=== PATIENT | female | born 1970 | race Caucasian/White ===

== ENCOUNTER 2016-09-09 09:28 | Inpatient (IN) | payer MEDICARE, OTHER ==
--- NOTE | ~2016-09-09 | CT71 ---
[facility] A Service of [facility] RADIOLOGY TEXT RESULTS PATIENT: MEGGAN AYALA LOCATION: C3A 311-01 : 70 UNIT #: [id number] AGE: [address]: Luna Lambert MD SEX: F ORDER DR: [id number] [facility] [address] [place], [place] [address] [id number] E MR#: [id number] Acc #: [id number] NAME: MEGGAN AYALA : 1970 SEX: F STUDY DATE/TIME: 09/09/2016 10:05 UNIT: [facility] ROOM: STUDY DESCRIPTION: CT Head Wo Contrast Attending Physician: Nisha Jurado M.D. Ordering Physician: Nisha Jurado M.D. [facility] REPORT This report is preliminary unless electronic signature is present EXAM CT head without contrast dated 09/09/2016. COMPARISON CT head without contrast dated 08/15/2004. HISTORY Heroin overdose, unresponsive today. Patient was found down. TECHNIQUE CT of the head was obtained without contrast. This CT exam was performed with one or more of the following radiation dose reduction techniques: automatic exposure control, adjustment of mA and/or kV according to patient size, and iterative reconstruction. FINDINGS Significant motion artifact limits evaluation. After giving allowances to motion artifact, no obvious large hemorrhage, hydrocephalus, or midline shift is seen. In the areas without any motion artifact, no demonstrable solid intracranial mass is seen. Paranasal sinuses and mastoid air cells appear to be relatively well aerated. Imaged orbits with the ocular structures do not demonstrate any significant abnormality. IMPRESSION 1. Motion artifact significantly limits evaluation, particularly in the mid to inferior aspect of the brain. 2. After giving allowances to it, no obvious acute abnormality is seen in the visualized portions. Subtle changes cannot be evaluated. Dictated by... [facility] A Service [facility] RADIOLOGY TEXT RESULTS PATIENT: MEGGAN AYALA LOCATION: C3A 311- : 70 UNIT #: [id number] AGE: [address]: Luna Lambert MD SEX: F ORDER DR: Kirsten Coleman M.D. THIS IS AN ELECTRONICALLY VERIFIED REPORT Kirsten Coleman M.D. at 09/10/2016 2:05 PM CPR/tmw TD: 09/09/2016 10:57 JOB #: [id number] MEDICAL IMAGING REPORT Page 1 of 1 COPY
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
--- NOTE | ~2016-09-09 | HP ---
Unit #: [id number] #: [id number] Patient: MEGGAN AYALA [id number] [address] [address] [id number] E MR#: [id number] NAME: MEGGAN AYALA ROOM: Age: 46 Sex: F Admission Date: 09/09/2016 : 1970 Attending Physician: Nisha Jurado M.D. Primary Care Physician: [facility]. HISTORY AND PHYSICAL CHIEF COMPLAINT Heroin overdose. HISTORY OF PRESENT ILLNESS The patient is a 46-year-old female with unknown past medical history, who presented to the emergency department for evaluation of the above. History is obtained from chart review and discussion with the emergency room staff due to the patient's altered mental status. It is unclear when the patient was last seen normal. She was apparently found in a bathroom. She was brought to the emergency department for further evaluation. The patient denies illicit drug use. She was given 4 mg of Narcan in the emergency department with increased level of alertness. She apparently became agitated during the course of her evaluation and was given Geodon. In the emergency department initial temperature was 92.1, pulse 85, respiratory rate 8, oxygen saturation 100% on room air. Urine tox screen was positive for opiates and amphetamines. Alcohol level was 238. She is being admitted to [facility] for evaluation and further treatment. Urinalysis also showed findings concerning for urinary tract infection. She was given 2 g of Rocephin. PAST MEDICAL HISTORY Unknown. PAST SURGICAL HISTORY 1. Cholecystectomy. 2. Tubal ligation. SOCIAL HISTORY Unknown at this time. FAMILY HISTORY Unobtainable. ALLERGIES No known drug allergy information available. HOME MEDICATIONS Unknown. REVIEW OF SYSTEMS A complete review of systems is unobtainable due to altered mental status. Unit #: [id number] #: [id number] Patient: MEGGAN AYALA PHYSICAL EXAMINATION GENERAL: The patient is a female who is sleeping. She just receive Geodon. VITALS: Temperature 92.1, pulse 85, respiratory rate 8, blood pressure 137/90, oxygen saturation 100% on room air. HEENT: The head is atraumatic. Mucous membranes are dry. NECK: In a cervical collar. LUNGS: Clear to auscultation bilaterally with no increased work of breathing. HEART: Regular rate and rhythm. ABDOMEN: Soft and nontender with bowel sounds present in all four quadrants. EXTREMITIES: Nontender with no pedal edema. NEUROLOGIC: The patient is sleeping. She was apparently previously awake and alert. Oriented following Narcan administration. She currently received Geodon and is sleeping. PSYCHIATRIC: The patient demonstrates poor insight and judgment. SKIN: Skin of examined areas is warm and dry. DIAGNOSTIC STUDIES IMAGING: CT of the head showed no acute abnormality. CT of the cervical spine showed severe arthritis changes and MRI was recommended. Chest x-ray showed no acute abnormality. LABORATORY: Arterial blood gas shows pH 7.271, pCO2 60.6, pO2 31.7 on 2 liters. Troponin is less than 0.05. Urinalysis notable for nitrate positive, 2+ protein, 250 glucose, 4+ bacteria, moderate squamous cells. Urine tox screen positive for amphetamines and opiates. CBC notable for MCV 97.5, lactic acid 2.9. CMP notable for potassium 2.8, glucose 171, AST 598, ALT 551, alkaline phosphatase 183, CK 111. Tylenol and salicylate levels are negative. Alcohol level is 238. INR is 1.1. CARDIOVASCULAR: EKG was done, but is not currently on the chart. ASSESSMENT The patient is a 46-year-old female with 1. Altered mental status secondary to number two. 2. Multiple substance overdose, unintentional. 3. Urinary tract infection. The patient received Rocephin in the emergency department. 4. Hypothermia with an initial temperature of 92.1. 5. Hypokalemia. The patient received 40 mEq of potassium IV in the emergency department. 6. Transaminitis. 7. Severe arthritic changes of the cervical spine. PLAN 1. Admit to intermediate level. 2. N.p.o. until awake and passes bedside swallow. 3. Normal saline at 125 mL an hour. 4. TSH, B12 and folate. 5. Neurologic checks. 6. Consult Dr. Babin regarding overdose. 7. Blood cultures times two. 8. Urine culture and sensitivity on urine in the lab. Unit #: [id number] #: [id number] Patient: MEGGAN AYALA 9. Rocephin 1 g IV daily pending results of urine culture. 10. Sepsis protocol with repeat lactic acid. 11. Bear hugger per protocol. 12. Check magnesium level. 13. Potassium/magnesium protocol. 14. Serial cardiac enzymes. 15. Right upper quadrant ultrasound for further evaluation of transaminitis. 16. Check hepatitis panel. 17. MRI of the cervical spine for further evaluation of abnormal CT. 18. Repeat labs in the morning, including CPK. 19. SCDs for DVT prophylaxis. 20. Additional workup and consultants based on the above. Dictated by Brigitte Falk M.D. RUSLAN/derek TD: 09/09/2016 12:33 JOB #: [id number] HISTORY AND PHYSICAL Page 1 of 1 X Brigitte Falk MD X HISTORY AND PHYSICAL
--- NOTE | ~2016-09-09 | DS ---
Unit #: [id number] #: [id number] Patient: MEGGAN AYALA [id number] [address] [address] [id number] I MR#: [id number] NAME: MEGGAN AYALA ROOM: 311 Age: 46 Sex: F Admission Date: 09/09/2016 : 1970 Discharge Date: Attending Physician: Luna Lambert M.D. Primary Care Physician: [facility]. DISCHARGE SUMMARY DISCHARGE DIAGNOSES 1. Toxic metabolic encephalopathy. 2. Change in mental status, most likely secondary to polysubstance abuse. Also she has a history of seizures, could be seizure episode. 3. History of seizures. 4. Escherichia coli urinary tract infection. 5. Multisubstance abuse. 6. Hypothermia, secondary to substance abuse. 7. Sepsis. 8. Transaminitis secondary to alcohol abuse. 9. Abnormal CAT scan of the neck. MRI shows no infection and no diskitis. 10. Hypokalemia. 11. Hypermagnesemia. 12. Acute hypercapnic/hypoxic respiratory failure secondary to drug abuse. CONSULTANTS Dr. Contreras and Dr. Babin. PROCEDURES None. DIAGNOSTIC STUDIES MRI of the cervical spine with IV contrast and shows no infection or abscess. That is done on 09/11/2016. MRI on 09/11/2016 shows motion degraded C4 and C5 facet joint, shows marrow edema. Could indicate active inflammation or degeneration. LABORATORY STUDIES: Urine culture is growing E. coli. Blood cultures negative, creatinine 0.5, AST 414, ALT 443, alk phos 174, total bilirubin 0.9. Troponin is 0.3, lactic acid 1.1. Urine drug screen positive for amphetamines and opiates. ABG - pH 7.27, carbon dioxide 60, oxygen 31. IMAGING STUDIES: CT of the cervical spine shows C4 and C5 facet changes. CAT scan of the head - no acute abnormalities. ALLERGIES None. DISCHARGE MEDICATIONS 1. Gabapentin 300 q.8. Unit #: [id number] #: [id number] Patient: MEGGAN AYALA 2. Prozac 20 daily. 3. Seroquel 250 at bedtime. 4. Nitrofurantoin 100 p.o. b.i.d. HOSPITAL COURSE 46-year-old admitted with a change in mental status. Change in mental status secondary to metabolic encephalopathy from drug overdose versus seizures. Gabapentin has been continued for her seizures. No other seizure medication given and she does not take anything else for her seizures. Most likely her seizures are from alcohol abuse in the past. CT of the head negative. E. coli urinary tract infection started on Rocephin, currently afebrile, (1) stable. Patient will be discharged on nitrofurantoin. Abnormal CAT scan of the neck. Patient is seen by Dr. Contreras. He repeated MRI of the spine with contrast. Repeat MRI did not show any acute infection or abscess. I am going to discharge her after seen by Dr. Contreras. Patient has underweight and calorie malnutrition. Continue with a high calorie diet. Transaminitis secondary to alcohol abuse, advised to quit. Hyperkalemia and hypomagnesemia. Replace with p.o. and IV magnesium currently stable. Acute hypercapnic/hypoxic respiratory failure on admission secondary to drug overdose resolved. DISCHARGE DISPOSITION Home. FOLLOWUP Follow with family physician in one week time. Patient will be seen by Dr. Contreras before discharge. Dictated by... Liliana Cedeno TD: 09/12/2016 11:38 JOB #: [id number] DISCHARGE SUMMARY Page 1 of 1 X Luna Lambert MD X DISCHARGE SUMMARY
--- NOTE | ~2016-09-09 | CO ---
Unit #: [id number] #: [id number] Patient: MEGGAN AYALA [id number] [address] [address] [id number] I MR#: [id number] NAME: MEGGAN AYALA ROOM: [facility] Age: 46 Sex: F Admission Date: 09/09/2016 : 1970 Attending Physician: Lnua Lambert M.D. Primary Care Physician: [facility]. Consultation Date: 09/11/2016 CONSULTATION REPORT HISTORY OF PRESENT ILLNESS The patient is a 46-year-old female. She supposedly at a seizure at home as she describes it and was thought to be having an overdose and was brought to the hospital for further evaluation. She does have a past history of drug abuse but denies any current drug abuse. PAST MEDICAL HISTORY Otherwise reviewed per chart. MEDICATIONS Per chart. REVIEW OF SYSTEMS A 14-point review of systems is negative except for some mild neck pain. PHYSICAL EXAMINATION Neck is nontender to palpation. She is thin. She has no motor or sensory deficits in her upper or lower extremities. No long tract signs are present. DIAGNOSTIC STUDIES IMAGING: MRI of the cervical spine without contrast is severely motion degraded. There is some edema in the posterior facet at C4-5, unknown etiology. Radiologist recommends repeat MRI with sedation and IV contrast. CLINICAL IMPRESSION Cervical pain, unknown etiology, possible infectious. RECOMMENDATIONS Repeat MRI. I have taken the liberty of setting this up with contrast and Ativan. We will follow the patient during the admission. I do not see anything warranting any surgical intervention on the current study. Dictated by... Liliana Pierson/christa TD: 09/11/2016 13:59 JOB #: [id number] Unit #: [id number] #: [id number] Patient: MEGGAN AYALA CONSULTATION REPORT Page 1 of 1 X Josias Contreras MD X CONSULTATION REPORT
--- NOTE | ~2016-09-09 | CR72 ---
[facility] A Service of [facility] & [facility] RADIOLOGY TEXT RESULTS PATIENT: MEGGAN AYALA LOCATION: [facility] 311-01 : 70 UNIT #: [id number] AGE: [address]: Luna Lambert MD SEX: F ORDER DR: [id number] [facility] [address] [place], [place] [address] [id number] E MR#: [id number] Acc #: [id number] NAME: MEGGAN AYALA : 1970 SEX: F STUDY DATE/TIME: 09/09/2016 9:41 UNIT: [facility] ROOM: STUDY DESCRIPTION: CR Chest Single View Portable Attending Physician: Nisha Jurado M.D. Ordering Physician: Nisha Jurado M.D. [facility] REPORT This report is preliminary unless electronic signature is present EXAM Single view of the chest dated 09/09/2016 at 0941 hours. COMPARISON Chest 2 views dated 08/14/2004. HISTORY Patient was found by family today. Shortness of air and altered mental status. FINDINGS Single view of the chest was obtained. Lungs are slightly hyperinflated which could be due to deep inspiration. Underlying minimal emphysematous changes cannot be excluded in the appropriate clinical setting. Nonspecific. No superimposed acute cardiopulmonary disease. Lungs are well aerated. Heart, mediastinum, and bones are within normal limits. Dictated by... Kirsten Coleman M.D. THIS IS AN ELECTRONICALLY VERIFIED REPORT Kirsten Coleman M.D. at 09/10/2016 2:05 PM CPR/tmw TD: 09/09/2016 10:08 JOB #: [id number] MEDICAL IMAGING REPORT Page 1 of 1 COPY
--- NOTE | ~2016-09-09 | MR32 ---
[facility] A Service of [facility] & [facility] RADIOLOGY TEXT RESULTS PATIENT: MEGGAN AYALA LOCATION: A 311-01 : [birth year] UNIT #: [id number] AGE: [address]: Luna Lambert MD SEX: F ORDER DR: [id number] [facility] [address] [place], [place] [address] [id number] I MR#: [id number] Acc #: [id number] NAME: MEGGAN AYALA : 1970 SEX: F STUDY DATE/TIME: 09/10/2016 18:02 UNIT: [address] ROOM: [facility] STUDY DESCRIPTION: MR Cervical Wo Contrast Attending Physician: Luna Lambert M.D. Ordering Physician: Brigitte Falk M.D. [facility] REPORT This report is preliminary unless electronic signature is present. EXAM MRI of the cervical spine without contrast HISTORY 46-year-old female found down from apparent heroin overdose. Abnormal CT cervical spine. COMPARISON CT cervical spine 09/09/2016 FINDINGS Multiplanar, multiecho imaging was performed of the cervical spine utilizing a high-field magnet and dedicated protocol. Study is severely degraded due to motion artifact. Examination demonstrates normal spinal alignment. There is marrow edema within the C4 and C5 vertebral bodies but no definite fluid across the disc space to suggest discitis. There is also marrow edema within the right C4-5 lamina bordering the C4-5 facet joint. Again, this could be degenerative in nature though underlying infectious arthropathy not excluded. Clearly, no drainable fluid collection or abscess. There is multilevel degenerative disc disease with mild posterior disc bulging C3-4, C4-5, C5-6. No Chiari malformation. Cervical cord signal appears normal without mass, syrinx or contusion. Prevertebral soft tissues appear normal. IMPRESSION Technically limited examination due to motion artifact. Study does confirm facet arthropathy involving the right C4-5 facet joints with surrounding marrow edema, which could indicate an active inflammatory process. This may be degenerative in nature though an infectious facet arthropathy not entirely excluded. Clearly, no evidence to suggest discitis though there is some nonspecific marrow edema within the C4 and C5 vertebral bodies. Recommend the patient undergo clinical followup and if clinical symptoms persist, repeat c-spine imaging, possibly with STS. [facility] A Service of [facility] & [facility] RADIOLOGY TEXT RESULTS PATIENT: MEGGAN AYALA LOCATION: C3A 311-01 : [birth year] UNIT #: [id number] AGE: [address]: Luna Lambert MD SEX: F ORDER DR: sedation, and IV contrast may be warranted. Again, the current study is severely degraded due to motion artifact. Dictated by... Mateo Dumont M.D. THIS IS AN ELECTRONICALLY VERIFIED REPORT Mateo Dumont M.D. at 09/11/2016 10:59 PM MIRTA/shirley TD: 09/10/2016 23:30 JOB #: [id number] MRI CENTER REPORT Page 1 of 1 COPY
--- NOTE | ~2016-09-09 | CO ---
Unit #: [id number] #: [id number] Patient: NORMA AYALA [id number] [address] [address] [id number] I MR#: [id number] NAME: NORMA AYALA ROOM: 311 Age: 46 Sex: F Admission Date: 09/09/2016 : 1970 Attending Physician: Luna Lambert M.D. Primary Care Physician: [facility]. Consultation Date: 09/12/2016 CONSULTATION REPORT REASON FOR CONSULTATION Followup. DISCUSSION Norma is a 46-year-old female seen in room 311 bed-1 on 09/12/16 at [facility]. The patient was compliant and cooperative. Reported feeling better, decrease in anxiety/agitation. Patient reports making progress, sleeping good. Denied any suicidal or homicidal ideation. REVIEW OF SYSTEMS Complete review of systems is remarkable. MENTAL STATUS EXAMINATION GENERAL APPEARANCE: The patient in thin built, casually dressed. Attention span and concentration fair. Speech - regular rate, coherent. Oriented in time, place and person. Mood and affect were labile. Thought process - goal directed. Thought content - patient denied any thoughts of harming self or others or any psychotic symptoms. Recent and remote memory fair. Language - able to name object, repeat phrases. Fund of knowledge fair. Insight and judgment fair to slightly impaired. DIAGNOSIS PSYCHIATRIC: Opiate use disorder, severe - F11.20. ASSESSMENT/PLAN 1. Supportive psychotherapy and psychoeducation provided to patient. 2. Advised patient to follow up at (1) program at [facility]. Patient was also given Crisis Line number [phone]. Please feel free to call if any questions. Telephone number [phone]. Dictated by... Jimy Babin M.D. Nereida TD: 09/13/2016 11:59 JOB #: [id number] Unit #: [id number] #: [id number] Patient: NORMA AYALA CONSULTATION REPORT Page 1 of 1 X Jimy Babin MD CONSULTATION REPORT
--- NOTE | ~2016-09-09 | EKG ---
PATIENT: MEGGAN AYALA UNIT #: [id number] Ventricular Rate: 68 BPM Atrial Rate: 68 BPM P-R Interval: 158 ms QRS Duration: 80 ms Q-T Interval: 460 ms QTC Calculation(Bezet): 489 ms P Ashton: 55 degrees Calculated R Ashton: 53 degrees Calculated T Ashton: 113 degrees Diagnosis Line: Normal sinus rhythm Diagnosis Line: Nonspecific ST and T wave abnormality Diagnosis Line: Prolonged QT Diagnosis Line: Abnormal ECG Diagnosis Line: No previous ECGs available Diagnosis Line: Confirmed by PAUL PERSAUD MD ([id number]) on 09/09/2016 Diagnosis Line: 4:46:35 PM INTERPRETING MD: HUNG FOFANA
--- NOTE | ~2016-09-09 | CT52 ---
[facility] A Service of [facility] RADIOLOGY TEXT RESULTS PATIENT: MEGGAN AYALA LOCATION: C3A 311-01 : [birth year] UNIT #: [id number] AGE: [address]: Luna Lambert MD SEX: F ORDER DR: [id number] [facility] [address] [place], [place] [address] [id number] MR#: [id number] Acc #: [id number] NAME: MEGGAN AYALA : 1970 SEX: F STUDY DATE/TIME: 09/09/2016 10:11 UNIT: LEANDRO ROOM: STUDY DESCRIPTION: CT Cervical Spine Wo Cont Attending Physician: Nisha Jurado M.D. Ordering Physician: Nisha Jurado M.D. [facility] REPORT This report is preliminary unless electronic signature is present EXAM CT of the C-spine without contrast dated 09/09/2016. COMPARISON None HISTORY Heroin overdose, unresponsive today. Patient was found down. TECHNIQUE CT of the C-spine was obtained without contrast in the axial plane followed by sagittal and coronal reformats. This CT exam was performed with one or more of the following radiation dose reduction techniques: automatic exposure control, adjustment of mA and/or kV according to patient size, and iterative reconstruction. FINDINGS Vertebral body heights and alignment are preserved. Intervertebral disc heights are intact. Prominent anterior and posterior endplate osteophytes are noted. There is a hypodense lesion noted within the right C5 pedicle which is associated with right C4-5 facet joint irregularity. Bony changes are also noted in the right C4 pedicle and right C4 lamina. There is some hypodensity noted adjacent to these lesions in the nearby paraspinal soft tissue and there is probably involvement of the right C4-5 joint predominantly with bony changes. There are no old studies for comparison. There appears to be a hypodense 4.5 x 7 mm component of it in the right pedicle of C5. No acute fracture or subluxation is seen. Pre and paravertebral soft tissues do not demonstrate any significant abnormality. Emphysematous blebs are noted in the lung apices, particularly in the right lung. C2-3: Mild disc bulge without canal stenosis or neural foraminal STS. [facility] A Service of [facility] RADIOLOGY TEXT RESULTS PATIENT: MEGGAN AYALA LOCATION: C3A 311-01 : [birth year] UNIT #: [id number] AGE: [address]: Luna Lambert MD SEX: F ORDER DR: narrowing. C3-4: Disc osteophyte complex with kucmxust-eh-echeem bilateral facet hypertrophic changes. Bilateral uncinate spurs are noted with mild left and moderate right neural foraminal narrowing. There is a central protrusion. Borderline size to mild canal stenosis is seen. C4-5: Disc osteophyte complex with bilateral uncinate spurs, severe bilateral neural foraminal narrowing. Significant changes are noted in the right facet joint as described above. There are also some changes to a lesser degree noted in the left facet joint. Borderline size canal. C5-6: Disc osteophyte complex with bilateral uncinate spurs, mild right and nawqjojw-yg-bricqw left facet hypertrophic facet changes. Severe left and mild right neural foraminal narrowing are noted with mild canal stenosis. C6-7, C7-T1: Mild disc bulge without significant canal stenosis or neural foraminal narrowing. IMPRESSION 1. No acute fracture or subluxation. 2. There are facet changes at multiple levels, most prominent in the right C4-5 facet joint extending to the articulating surfaces and laminae of right C4 and right C5 with bony irregularity and adjacent paraspinal hypodense component. These are suspicious for severe arthritic changes with synovial inflammatory tissue and synovial cyst formation. No drainable significant acute infectious fluid collection like abscess relating to a septic arthritis is seen. Given the lack of prior studies, acuity of the lesion cannot be determined. Clinical correlation and depending on the need, MRI can be considered for further evaluation. 3. Varying degrees of neural foraminal narrowing are noted at multiple levels, worst in bilateral C4-5 and C5-6. Correlate with appropriate radiculopathy. Dictated by... Kirsten Coleman M.D. THIS IS AN ELECTRONICALLY VERIFIED REPORT Kirsten Coleman M.D. at 09/10/2016 2:08 PM CPR/tmw TD: 09/09/2016 12:08 JOB #: [id number] MEDICAL IMAGING REPORT [facility]. [facility] A Service of [facility] RADIOLOGY TEXT RESULTS PATIENT: MEGGAN AYALA LOCATION: [facility] 311-01 : [birth year] UNIT #: [id number] AGE: [address]: Lnua Lambert MD SEX: F ORDER DR: Page 1 of 1 COPY
--- NOTE | ~2016-09-09 | US6 ---
[facility] A Service of [facility] RADIOLOGY TEXT RESULTS PATIENT: MEGGAN AYALA LOCATION: [facility] 311-01 : 70 UNIT #: [id number] AGE: [address]: Luna Lambert MD SEX: F ORDER DR: [id number] [facility] [address]. [place], [place] [address] [id number] I MR#: [id number] Acc #: [id number] NAME: MEGGAN AYALA : 1970 SEX: F STUDY DATE/TIME: 09/10/2016 9:30 UNIT: [address] ROOM: [facility] STUDY DESCRIPTION: US Abdominal Limited Attending Physician: Luna Lambert M.D. Ordering Physician: Brigitte Falk M.D. Primary [facility] Phys[facility] REPORT This report is preliminary unless electronic signature is present EXAM Gallbladder ultrasound, 09/10/2016. HISTORY Abnormally elevated liver enzymes. Cholecystectomy 20 years ago. FINDINGS The liver is homogeneous in echotexture demonstrates no cystic or solid mass lesions. The intra and extrahepatic bile ducts are not dilated. The gallbladder is surgically absent as per patient history. The common duct measures 6 mm. The pancreas and right kidney are normal. IMPRESSION Surgical absence of the gallbladder. Otherwise, negative right upper quadrant ultrasound. Dictated by... Christopher Rodas M.D. THIS IS AN ELECTRONICALLY VERIFIED REPORT Christopher Rodas M.D. at 09/12/2016 8:16 AM LINDSAY/liz TD: 09/10/2016 15:09 JOB #: [id number] MEDICAL IMAGING REPORT Page 1 of 1 COPY
--- NOTE | ~2016-09-09 | CO ---
Unit #: [id number] #: [id number] Patient: MEGGAN AYALA [id number] [address] [address] [id number] I MR#: [id number] NAME: MEGGAN AYALA ROOM: 311 Age: 46 Sex: F Admission Date: 09/09/2016 : 1970 Attending Physician: Luna Lambert M.D. Primary Care Physician: [facility]. Consultation Date: 09/11/2016 CONSULTATION REPORT DISCUSSION Ms. Green is a 46-year-old female seen in room 311 3A at [facility] on 09/11/16 as a followup. The patient reported feeling better, decrease in anxiety/depression. Patient was using opiates. Patient denied any withdrawal symptom. Mood sad, dysphoric. Patient was cooperative. REVIEW OF SYSTEMS Complete review of systems unremarkable. MENTAL STATUS EXAMINATION GENERAL APPEARANCE: The patient was casually dressed. Attention span and concentration fair. Oriented in place and person. Mood and affect was (1) . Speech was regular rate. Thought process - goal directed. Patient denied any thoughts of harming self or others or any psychotic symptoms. Recent and remote memory fair. Language intact. Fund of knowledge fair. Insight and judgment fair to slightly impaired. DIAGNOSIS Opiate use disorder, severe - F11.20. ASSESSMENT/PLAN 1. Supportive psychotherapy and psychoeducation provided to patient. 2. Educated about benefits and side effects of medication and course and prognosis of illness. 3. Please feel free to call if any questions. Telephone number [phone]. Dictated by... Liliana Luong/nataly TD: 09/18/2016 10:50 JOB #: [id number] Unit #: [id number] #: [id number] Patient: MEGGAN AYALA CONSULTATION REPORT Page 1 of 1 X Jimy Babin MD CONSULTATION REPORT
--- NOTE | ~2016-09-09 | CO ---
Unit #: [id number] #: [id number] Patient: MEGGAN AYALA [id number] [facility] [address] [facility] [address]. [place], [place] [address] [id number] I MR#: [id number] NAME: MEGGAN AYALA ROOM: 311 Age: 46 Sex: F Admission Date: 09/09/2016 : 1970 Attending Physician: Luna Lambert M.D. Primary Care Physician: [facility] Consultation Date: 09/10/2016 CONSULTATION REPORT REASON FOR CONSULTATION Confusion, opioid abuse. HISTORY OF PRESENT ILLNESS Ms. Green is a 46-year-old female, seen on 09/10/2016 in room 311, bed 1 at [facility]. The patient was pleasant and cooperative during interview, able to answer questions appropriately, sitting in a propped up position. The patient denied any current suicidal or homicidal ideation. Denied any psychotic symptom. The patient admitted using drugs and does not remember much. The patient's urine drug screen was positive for amphetamine and opioids. The patient was admitted with heroin overdose. The patient reported using these drugs and accidental overdose. Denied any suicide attempt or any psychotic symptom or any suicidal ideation at this time. The patient was given 4 mg of Narcan in the emergency room, which was helpful. The patient able to contract for safety at this time. Denied any psychotic symptom. PAST PSYCHIATRIC HISTORY Remarkable for history of depression and substance abuse, as mentioned above. No history of any suicide attempt or any inpatient psychiatric treatment. MEDICAL HISTORY History of cholecystectomy, tubal ligation. No chronic medical condition. MEDICATION HISTORY None. Please refer to MAR for detail. FAMILY HISTORY AND SOCIAL HISTORY The patient reports that she has a good support system. No history of any abuse. History of substance abuse as mentioned above. REVIEW OF SYSTEMS Complete review of systems is unremarkable. The patient denied any complaints at this time. MENTAL STATUS EXAMINATION General appearance; the patient dressed casually in hospital attire, sitting comfortably in a propped up position. Attention span and concentration, fair. Speech, regular rate and coherent. Oriented in time, place, and person. Mood and affect were labile. Thought process, coherent and goal directed. Thought content, the patient denied any thoughts of harming self or others or any psychotic symptom. Recent and remote memory, fair. Language, able to name object and repeat phrases. Unit #: [id number] #: [id number] Patient: MEGGAN AAYLA Fund of knowledge, fair. Insight and judgment, fair to slightly impaired. DIAGNOSES Psychiatric: Opioid use disorder, severe, F11.20. Secondary diagnosis: Deferred. Medical diagnosis: Please refer to H and P. Stressors: Psychosocial stressor. ASSESSMENT/PLAN 1. Supportive psychotherapy and psychoeducation provided to the patient. 2. Educated about benefits and side effects of medication and course and prognosis of illness. The patient at this time denied any suicidal or homicidal ideation, denied any psychotic symptom. The patient is to continue with Prozac as advised and follow up in IOP level of care at [facility]. The patient was given crisis line #[phone]. Please feel free to call if any questions, telephone #[phone]. Dictated by... Liliana Luong/felipe TD: 09/11/2016 03:41 JOB #: [id number] CONSULTATION REPORT Page 1 of 1 X Jimy Babin MD X CONSULTATION REPORT
[2016-09-09 09:20] LABS: URINE SOURCE CATH
[2016-09-09 09:26] LABS: ARTERIAL BLOOD GAS HCO3 27.9 mmol/L; ARTERIAL BLOOD GAS MET HB 0.7 %sat (0.0-2.0); ARTERIAL BLOOD GAS pH 7.271 (7.350-7.450)
[2016-09-09 09:28] LABS: ARTERIAL BLOOD GAS PCO2 60.6 mmHg (35.0-45.0); ARTERIAL BLOOD GAS PO2 31.7 mmHg (80.0-100)
[2016-09-09 09:29] LABS: ARTERIAL DRAW? NO
[2016-09-09 09:30] LABS: ARTERIAL BLOOD GAS DELIVERY NASAL CANNULA
[2016-09-09 09:36] LABS: URINE APPEARANCE CLEAR; URINE BILIRUBIN NEG (NEG); URINE BLOOD NEG (NEG); URINE COLOR YELLOW; URINE GLUCOSE 250 MG/DL (NEG); URINE KETONE NEG (NEG); URINE LEUKOCYTE ESTERASE NEG (NEG); URINE NITRATE POS (NEG); URINE PROTEIN 2+ (NEG); URINE SPECIFIC GRAVITY 1.015 (1.003-1.035)
[2016-09-09 09:39] LABS: CULTURE INDICATED? YES; URBCS1 AUWI 0-2 /[HPF] (0-2); URINE BACTERIA AUWI 4+ (NEGATIVE); URINE SQUAMOUS EPITHELIAL CELL MOD /[HPF]
[2016-09-09 09:46] LABS: POC - CKMB 2.8 ng/mL (0.0-7.9); POC - TROPONIN <0.05 ng/mL (<=0.05)
[2016-09-09 09:47] LABS: AMPHETAMINE POS (NEG); BARBITURATES NEG (NEG); BENZODIAZEPINES NEG (NEG); COCAINE NEG (NEG); MARIJUANA NEG (NEG); OPIATES POS (NEG); TRICYCLIC ANTIDEPRESSANTS NEG (NEG); U METHADONE NEG (NEG)
[2016-09-09 09:50] LABS: U HYALINE CASTS AUWI 0-2 /[LPF]
[2016-09-09 10:00] LABS: BASOPHIL# 0.1 X10e3 (0-0.3); BASOPHIL% 1.3 % (0-2.5); DIFF IND NO; EOSINOPHIL# 0.2 X10e3 (0-0.7); EOSINOPHIL% 4.1 % (0.0-7.0); HEMATOCRIT 37.6 % (35.0-45.0); HEMOGLOBIN 12.3 gm/dL (12.0-16.0); LYMPHOCYTE# 2.1 X10e3 (1.0-3.5); LYMPHOCYTE% 51.5 % (17.0-45.0); MEAN CELL VOLUME 97.5 FL (83-96); MEAN CORPUSCULAR HEMOGLOBIN 31.9 PG (28-34); MEAN CORPUSCULAR HGB CONC 32.7 g/dL (30-36); MEAN PLATELET VOLUME 7.9 FL (6.5-11.5); MONOCYTE# 0.4 X10e3 (0-1.0); MONOCYTE% 9.9 % (3.0-12.0); NEUTROPHIL# 1.4 X10e3 (1.5-7.1); NEUTROPHIL% 33.2 % (40-75); PLATELET COUNT 192 X10e3 (140-420); RED BLOOD COUNT 3.86 X10e (3.90-5.30); RED CELL DISTRIBUTION WIDTH 13.7 % (11.0-15.5); WHITE BLOOD COUNT 4.1 X10e3 (4.0-10.5)
[2016-09-09 10:07] LABS: INR 1.1; PARTIAL THROMBOPLASTIN TIME 26.6 SECONDS (23.5-31.3); PROTHROMBIN TIME (PATIENT) 11.9 SECONDS (9.6-11.5)
[2016-09-09 10:09] LABS: ALBUMIN SERUM 4.3 g/dL (3.5-5.0); ALKALINE PHOSPHATASE 183 U/L (32-92); ALT (SGPT) 551 U/L (10-40); AST (SGOT) 598 U/L (10-42); BILIRUBIN, DIRECT 0.1 mg/dL (0.0-0.2); BILIRUBIN,INDIRECT 0.6 mg/dL (0.0-0.9); BILIRUBIN,TOTAL 0.7 mg/dL (0.2-2.0); BLOOD UREA NITROGEN 10 mg/dL (9-23); CALCIUM SERUM 8.4 mg/dL (8.4-10.2); CARBON DIOXIDE 24 mmol/L (22-31); CHLORIDE 103 mmol/L (100-111); CPK (CREATINE PHOSPHOKINASE) 111 IU/L (26-140); CREATININE SERUM 0.4 mg/dL (0.6-1.4); GLOM FILT RATE Estimated 124.9 mL/min (>60); GLUCOSE FASTING 171 mg/dL (70-110); SALICYLATE <4.0 mg/dL; SODIUM 139 mmol/L (135-145)
[2016-09-09 10:12] LABS: ACETAMINOPHEN <10 ug/mL
[2016-09-09 10:13] LABS: ALCOHOL BLOOD 238 mg/dL (0)
[2016-09-09 10:14] LABS: POTASSIUM 2.8 mmol/L (3.5-5.1)
[2016-09-09 12:31] LABS: POC - CKMB 2.7 ng/mL (0.0-7.9); POC - TROPONIN <0.05 ng/mL (<=0.05)
[2016-09-09 14:29] LABS: FOLATE (FOLIC ACID) 10.9 ng/mL (>5.8)
[2016-09-09] MEDS ORDERED: GABAPENTIN300 MG PO (19:36)
[2016-09-09 19:37] LABS: MB 3.5 ng/ml
[2016-09-09] MEDS ORDERED: SEROQUEL PO (19:37)
[2016-09-09] MEDS ORDERED: PROZAC PO (19:37)
[2016-09-09] MEDS ORDERED: IMITREX PO (19:38)
[2016-09-10 00:05] LABS: MAGNESIUM 1.4 mg/dL (1.6-3.0); POTASSIUM 4.2 mmol/L (3.5-5.1)
[2016-09-10 01:04] LABS: %MB 3.7 % (0.0-4.0); MB 3.2 ng/ml
[2016-09-10 07:47] LABS: HEMATOCRIT 39.5 % (35.0-45.0); HEMOGLOBIN 12.9 gm/dL (12.0-16.0); MEAN CORPUSCULAR HEMOGLOBIN 31.9 PG (28-34); MEAN CORPUSCULAR HGB CONC 32.5 g/dL (30-36); RED BLOOD COUNT 4.03 X10e (3.90-5.30); RED CELL DISTRIBUTION WIDTH 13.5 % (11.0-15.5)
[2016-09-10 07:50] LABS: WHITE BLOOD COUNT 6.6 X10e3 (4.0-10.5)
[2016-09-10 08:31] LABS: ALBUMIN SERUM 3.6 g/dL (3.5-5.0); BILIRUBIN,TOTAL 0.9 mg/dL (0.2-2.0); CALCIUM SERUM 8.6 mg/dL (8.4-10.2); CREATININE SERUM 0.5 mg/dL (0.6-1.4); GLOM FILT RATE Estimated 116.1 mL/min (>60); POTASSIUM 3.9 mmol/L (3.5-5.1); PROTEIN TOTAL SERUM 7.1 g/dL (6.0-8.3)
[2016-09-12 09:23] LABS: HEMATOCRIT 43.4 % (35.0-45.0); HEMOGLOBIN 14.4 gm/dL (12.0-16.0); MEAN CELL VOLUME 97.5 FL (83-96); MEAN CORPUSCULAR HEMOGLOBIN 32.4 PG (28-34); MEAN CORPUSCULAR HGB CONC 33.2 g/dL (30-36); MEAN PLATELET VOLUME 8.1 FL (6.5-11.5); RED BLOOD COUNT 4.46 X10e (3.90-5.30); RED CELL DISTRIBUTION WIDTH 13.3 % (11.0-15.5)
[2016-09-12 10:22] LABS: BUN/CREATININE RATIO 23.33; CALCIUM SERUM 9.8 mg/dL (8.4-10.2); CREATININE SERUM 0.6 mg/dL (0.6-1.4); GLOM FILT RATE Estimated 109.3 mL/min (>60); POTASSIUM 4.1 mmol/L (3.5-5.1)
[2016-09-12] MEDS ORDERED: NITROFURANTOIN100 M3 PO (10:32)
[2016-09-12 13:15] LABS: HA AB IGM (HEPPAN) Nonreactive (()); HB CORE AB IGM (HEPPAN) Nonreactive (Nonreactive); HB S AG (HEPPAN) Nonreactive (Nonreactive); HEP C AB (HEPPAN) Reactive (Nonreactive)
[2017-02-23] MEDS ORDERED: MULTIVITAMINS1 EAC3 PO (11:45)
[2017-02-23] MEDS ORDERED: PROTONIX PO (11:45)
[2017-02-23] MEDS ORDERED: NEURONTIN100 MG PO (11:46)
[2017-02-23] MEDS ORDERED: LIBRIUM25 M1 PO (11:46)
[2017-02-23] MEDS ORDERED: PROZAC PO (11:46)
[2017-02-23] MEDS ORDERED: SEROQUEL100 MG PO (11:47)
== END 2016-09-12 17:12 | disposition home or self-care (01) | DRG 917 ==
LOC: CED 09:28 → CEDOF 12:25 → C3A PCU 15:13
PROVIDERS: Emergency Medicine; Family Medicine; Internal Medicine
DX: T40.1X1A Poisoning by heroin, accidental (unintentional), initial encounter (principal); G92 Toxic encephalopathy; A41.9 Sepsis, unspecified organism; J96.01 Acute respiratory failure with hypoxia; J96.02 Acute respiratory failure with hypercapnia; E46 Unspecified protein-calorie malnutrition; N39.0 Urinary tract infection, site not specified; Z68.1 Body mass index [BMI] 19.9 or less, adult; F10.10 Alcohol abuse, uncomplicated; Y90.7 Blood alcohol level of 200-239 mg/100 ml; T43.621A Poisoning by amphetamines, accidental (unintentional), initial encounter; R68.0 Hypothermia, not associated with low environmental temperature; E87.6 Hypokalemia; R74.0 Nonspecific elevation of levels of transaminase and lactic acid dehydrogenase [LDH]; M46.92 Unspecified inflammatory spondylopathy, cervical region; G40.909 Epilepsy, unspecified, not intractable, without status epilepticus; B96.20 Unspecified Escherichia coli [E. coli] as the cause of diseases classified elsewhere; E83.41 Hypermagnesemia; R40.2432 Glasgow coma scale score 3-8, at arrival to emergency department; Y92.002 Bathroom of unspecified non-institutional (private) residence as the place of occurrence of the external cause; Z79.899 Other long term (current) drug therapy
CPT/HCPCS: 36415; 51702; 70450; 71010; 72125; 72141; 72156; 76705; 80048; 80053; 80074; 80076; 80307; 81003; 82550; 82553; 82607; 82746; 82803; 82947; 83605; 83735; 84132; 84443; 84484; 84703; 85025; 85027; 85610; 85730; 87040; 87086; 87088; 87186; 87522; 93005; 96361; 96365; 99285; A9577; G0480; J0696; J2060; J2310; J2405; J3475; J3486

== ENCOUNTER 2016-12-21 20:39 | Inpatient (IN) | payer MEDICARE, OTHER ==
[~2016-12-21] VITALS: Ht 165.1 cm; Wt 52.2 kg
--- NOTE | ~2016-12-21 | HP ---
Unit #: [id number] #: [id number] Patient: MEGGAN AYALA [id number] [address] [address] [id number] I MR#: [id number] NAME: MEGGAN AYALA ROOM: 467 Age: 46 Sex: F Admission Date: 12/22/2016 : 1970 Attending Physician: Luis Pringle M.D. Primary Care Physician: [facility]. HISTORY AND PHYSICAL CHIEF COMPLAINT/REASON FOR ADMISSION Loss of consciousness, weakness. HISTORY OF PRESENT ILLNESS Ms. Ayala is a 46-year-old, female who presented to the emergency room brought by EMS after she called them because of an episode of loss of consciousness. The patient apparently drinking the day of admission in the morning with a "pedro" on her friend's porch when she felt really lightheaded, nauseated, and fell. She says she does not recall much of the incident, but she thinks she may have had a seizure. She said she has had them before. She denies any bladder or bowel incontinence. She does mention that she had been drinking a few beers and some vodka, but she does not quantify. She drinks on a daily basis. After the event, the patient called EMS herself. In the emergency room, CT scan of the brain was negative and she was noted to have a potassium level of 2.4. She does mention over the last week she has been feeling a little weak and she says she has had some problems with low potassium in the past. PAST MEDICAL HISTORY Significant for: 1. History of cervical cancer, status post conization and LEEP approximately 3-4 years ago according to her. 2. Bipolar/depression. 3. Alcohol abuse. 4. Tobacco abuse. 5. History of hospitalization from heroin unintentional overdose. 6. Seizures. MEDICATIONS 1. SEROquel 250 mg p.o. q.h.s. 2. PROzac 20 mg daily. 3. Gabapentin 300 mg p.o. q.8 hours. ALLERGIES No known drug allergies. FAMILY HISTORY No history of hypertension, heart disease, or cancer in the family. SOCIAL HISTORY The patient lives in [place]. She smokes approximately 1 pack of cigarettes per week. Drinks on a daily basis, she says approximately 2-3 beers and some vodka. Denies any illicit drugs; but, again, she has a Unit #: [id number] #: [id number] Patient: MEGGAN AYALA history of unintentional heroin overdose a few months ago. REVIEW OF SYSTEMS Twelve-point review of systems is significant for loss of consciousness, as detailed previously; generalized weakness; pain in upper extremities and on her forehead where she said she bumped her head during the loss of consciousness episode; hot flashes; nausea and vomiting. Denies any fever, chills, or night sweats. No focal weakness. She does have a history of seizures and the previous seizure, according to her, was approximately one month ago. Patient states she has been compliant with her medications. PHYSICAL EXAMINATION VITAL SIGNS: Temperature is 98.1, heart rate 66, respiratory rate 20, blood pressure 107/66, and pulse oximetry 99% on room air. GENERAL APPEARANCE: She is a well developed, female in no acute distress. HEENT: Pupils are equal and reactive to light. Moist mucous membranes. No oral lesions. NECK: Supple. CHEST: Clear to auscultation bilaterally. CARDIOVASCULAR: Regular rate and rhythm. No murmurs, rubs, or gallops. ABDOMEN: Soft, nontender, and nondistended. EXTREMITIES: No edema. NEURO: She is awake, alert, and oriented x3. Strength is 5/5 in 4 extremities. SKIN: No rashes. MUSCULOSKELETAL: Range of motion is preserved in upper and lower extremities. DIAGNOSTIC STUDIES LABORATORY: Urine drug screen was negative. An alcohol level was 401. Potassium was 2.4, sodium 139, chloride 100, CO2 31, glucose 84, BUN 8, and creatinine 0.4. Liver tests showed an AST of 67, ALT of 32, alkaline phosphatase of 24, total bilirubin 0.4, and albumin 4.5. IMAGING: CT scan of the head showed atrophy out of proportion to age, but no acute findings. ASSESSMENT AND PLAN Ms. Ayala is a 46-year-old female with a history of bipolar depression and seizures as well as alcohol abuse disorder presented with: 1. Loss of consciousness: Likely related to an acute alcoholic intoxication. Patient has received, already, IV fluids in the emergency room. I extensively counseled the patient to quit. Seizures would be in the differential as well, likely related to alcohol; however, this is less clear. She has been extensively evaluated by neurology in the past. She follows with Dr. Pate. Will need a followup appointment after discharge. 2. Hypokalemia: The patient has received 40 mEq of potassium IV and 40 p.o. Potassium from this morning is still pending. Magnesium is within normal limits. Likely related to repeated episodes of emesis from alcohol intoxication. 3. Question of seizures: Unclear if she had an acute event. Will continue her medications in the meantime. 4. Bipolar disorder/depression: The patient is, at this time, non-suicidal or homicidal. Continue with home PROzac and SEROquel. Patient follows with Dr. Naidu as her psychiatrist and will need an Unit #: [id number] #: [id number] Patient: MEGGAN AYALA outpatient followup as well. 5. DVT prophylaxis: The patient is ambulatory. DISPOSITION Possibly, the patient will be going home later in the day depending on the repeat potassium level. Again, the patient has been extensively counseled to quit drinking and smoking and will need to get a primary care physician to follow up with after discharge. Dictated by Liliana Meredith/ferny TD: 12/22/2016 08:38 JOB #: [id number] HISTORY AND PHYSICAL Page 1 of 1 X X HISTORY AND PHYSICAL
--- NOTE | ~2016-12-21 | DS ---
Unit #: [id number] #: [id number] Patient: MEGGAN AYALA [id number] [address] [address] [id number] I MR#: [id number] NAME: MEGGAN AYALA ROOM: 46 Age: 46 Sex: F Admission Date: 12/22/2016 : 1970 Discharge Date: 12/24/2016 Attending Physician: Margaret Brunson M.D. Primary Care Physician: [facility]. DISCHARGE SUMMARY PRINCIPAL DIAGNOSES 1. Severe hypokalemia. 2. Nausea, vomiting secondary to acute alcohol intoxication. 3. Acute alcohol intoxication with minimal signs of withdrawal. 4. Chronic alcohol abuse. 5. Bipolar disorder. 6. Depression. 7. History of seizures without witnessed seizure during hospitalization. 8. Underweight. 9. At least mild protein malnutrition. 10. Tobaccoism. CONSULTANTS None. PROCEDURES CT of the head without contrast on December 21, 2016, with generalized atrophy out of proportion to age. No other acute findings. CLINICAL HISTORY/HOSPITAL COURSE Ms. Ayala is a 46-year-old female brought into the emergency department due to altered mental status and weakness. The patient was drinking prior to presentation. In the emergency department, she underwent CT scan of the head which was unremarkable with the exception of some atrophy. It is likely alcohol related. She was found to be significantly hypokalemic and was subsequently admitted. The patient was started on potassium supplementation but, unfortunately, still remained hypokalemic. She was also having some significant nausea and vomiting. It is likely secondary to her alcohol intoxication plus or minus perhaps some alcoholic gastritis though she denied much abdominal pain. This morning, potassium is improved at 3.1. I am going to increase diet and, assuming she tolerates diet, I think she can go home on oral potassium supplementation. Other electrolytes remain stable. There was some concern that perhaps patient had seizure. She was weak at home and states she lost consciousness. However, her alcohol level was 401 and if indeed her seizures in the past have been alcohol related, I highly doubt the episode at home was a seizure. She had one episode of feeling weak and sweating in bed and this was questionably a seizure but I think, without any witnessed seizure activity, this is unlikely. I think she can follow up with neurology whom she has seen in the past as an outpatient. Again, I anticipate she can be discharged home later today. Unit #: [id number] #: [id number] Patient: MEGGAN AYALA DISCHARGE CONDITION Stable. DISCHARGE STATUS Discharge to home. DISCHARGE MEDICATIONS 1. Klor-Con 20 mEq p.o. daily for 14 days. 2. Gabapentin 300 mg t.i.d. 3. Prozac 20 mg daily. 4. Seroquel 200 mg daily. 5. A daily multivitamin [id number]. DISCHARGE INSTRUCTIONS The patient was instructed to follow a regular diet. She will refrain from any further tobacco or alcohol use. She can increase her activity as tolerated. She should not drive while intoxicated. FOLLOWUP The patient will follow up with [facility] in one week. She should have an outpatient echocardiogram to evaluate for alcohol-induced cardiac problems but she had no signs of that during hospitalization. She has been provided information regarding Alcoholic's Anonymous. Dictated by... Margaret Brunson M.D. ANTHONY/nataly TD: 12/24/2016 10:46 JOB #: [id number] DISCHARGE SUMMARY Page 1 of 1 X Margaret Brunson MD X DISCHARGE SUMMARY
--- NOTE | ~2016-12-21 | CT71 ---
[facility] A Service of [facility] RADIOLOGY TEXT RESULTS PATIENT: MEGGAN AYALA LOCATION: [facility] : [birth year] UNIT #: [id number] AGE: [address]: Luis Pringle MD SEX: F ORDER DR: [id number] [facility] [address] [place], [place] [address] [id number] I MR#: [id number] Acc #: [id number] NAME: MEGGAN AYALA : 1970 SEX: F STUDY DATE/TIME: 12/21/2016 22:03 UNIT: [facility] ROOM: [facility] STUDY DESCRIPTION: CT Head Wo Contrast Attending Physician: Luis Pringle M.D. Ordering Physician: Josesito Richmond M.D. Primary Care Physician: [facility]. MEDICAL IMAGING REPORT This report is preliminary unless electronic signature is present EXAM Head CT 12/21 at 2203 hours INDICATIONS Confusion today. Alcohol withdrawal. FINDINGS Axial images were obtained from the base to the vertex without contrast. Comparison made with 09/09/2016. This CT exam was performed with one or more of the following radiation dose reduction techniques: automatic control, adjustment of mA and/or kV according to patient size, and iterative reconstruction. There is generalized atrophy out of proportion to age. Ventricular size and configuration are normal. No acute infarct or hemorrhage is seen. There are no masses. There are no skull fractures. IMPRESSION Atrophy out of proportion to age. No acute findings. Dictated by... Anthony Jackson Jr., M.D. THIS IS AN ELECTRONICALLY VERIFIED REPORT Anthony Jackson Jr., M.D. at 12/22/2016 5:53 AM LARISSA/camron TD: 12/22/2016 04:51 JOB #: [id number] MEDICAL IMAGING REPORT Page 1 of 1 COPY
[~2016-12-21 20:39] MED LIST: GABAPENTIN300 MG PO; IMITREX PO; NITROFURANTOIN100 M3 PO; PROZAC PO; SEROQUEL PO
[2016-12-21 22:15] LABS: BASOPHIL% 0.8 % (0-2.5); EOSINOPHIL# 0.1 X10e3 (0-0.7); EOSINOPHIL% 1.3 % (0.0-7.0); HEMATOCRIT 38.3 % (35.0-45.0); LYMPHOCYTE# 2.1 X10e3 (1.0-3.5); LYMPHOCYTE% 51.9 % (17.0-45.0); MEAN CELL VOLUME 94.3 FL (83-96); MEAN PLATELET VOLUME 6.9 FL (6.5-11.5); MONOCYTE# 0.3 X10e3 (0-1.0); NEUTROPHIL# 1.5 X10e3 (1.5-7.1); PLATELET COUNT 137 X10e3 (140-420); RED BLOOD COUNT 4.06 X10e (3.90-5.30); RED CELL DISTRIBUTION WIDTH 13.7 % (11.0-15.5)
[2016-12-21 22:16] LABS: DIFF IND YES
[2016-12-21 22:16] LABS: AMPHETAMINE NEG (NEG); BARBITURATES NEG (NEG); BENZODIAZEPINES NEG (NEG); COCAINE NEG (NEG); MARIJUANA NEG (NEG); OPIATES NEG (NEG); TRICYCLIC ANTIDEPRESSANTS NEG (NEG); U METHADONE NEG (NEG)
[2016-12-21 22:46] LABS: PLATELET ESTIMATE DECREASED (NORMAL); RBC NORMAL YES
[2016-12-21 22:50] LABS: ALBUMIN SERUM 4.5 g/dL (3.5-5.0); BILIRUBIN, DIRECT 0.1 mg/dL (0.0-0.2); BILIRUBIN,INDIRECT 0.3 mg/dL (0.0-0.9); BILIRUBIN,TOTAL 0.4 mg/dL (0.2-2.0); CALCIUM SERUM 8.4 mg/dL (8.4-10.2); CREATININE SERUM 0.4 mg/dL (0.6-1.4); GLOM FILT RATE Estimated 124.9 mL/min (>60); PROTEIN TOTAL SERUM 8.1 g/dL (6.0-8.3)
[2016-12-21 22:51] LABS: POTASSIUM 2.4 mmol/L (3.5-5.1)
[2016-12-22] MEDS ORDERED: SARAFEM20 MG PO (02:53)
[2016-12-22] MEDS ORDERED: GABAPENTIN300 M2 PO (02:53)
[2016-12-22] MEDS ORDERED: QUETIAPINE FUM200 MG PO (03:00)
[2016-12-22 10:06] LABS: CALCIUM SERUM 8.1 mg/dL (8.4-10.2); CREATININE SERUM 0.4 mg/dL (0.6-1.4); GLOM FILT RATE Estimated 124.9 mL/min (>60); MAGNESIUM 1.6 mg/dL (1.6-3.0); POTASSIUM 3.2 mmol/L (3.5-5.1)
[2016-12-23 11:29] LABS: CALCIUM SERUM 8.7 mg/dL (8.4-10.2); CREATININE SERUM 0.5 mg/dL (0.6-1.4); GLOM FILT RATE Estimated 116.1 mL/min (>60); MAGNESIUM 1.7 mg/dL (1.6-3.0); POTASSIUM 3.6 mmol/L (3.5-5.1)
[2016-12-24 04:07] LABS: BUN/CREATININE RATIO 11.66; CALCIUM SERUM 8.8 mg/dL (8.4-10.2); CREATININE SERUM 0.6 mg/dL (0.6-1.4); GLOM FILT RATE Estimated 109.3 mL/min (>60); MAGNESIUM 2.1 mg/dL (1.6-3.0); POTASSIUM 3.1 mmol/L (3.5-5.1)
[2016-12-24] MEDS ORDERED: SM THERAPEUTIC1 EACH PO (14:38)
[2016-12-24] MEDS ORDERED: KCL PO (14:39)
[2017-02-23] MEDS ORDERED: PROTONIX PO (11:45)
[2017-02-23] MEDS ORDERED: MULTIVITAMINS1 EAC3 PO (11:45)
[2017-02-23] MEDS ORDERED: NEURONTIN100 MG PO (11:46)
[2017-02-23] MEDS ORDERED: LIBRIUM25 M1 PO (11:46)
[2017-02-23] MEDS ORDERED: PROZAC PO (11:46)
[2017-02-23] MEDS ORDERED: SEROQUEL100 MG PO (11:47)
== END 2016-12-24 15:30 | disposition home or self-care (01) | DRG 897 ==
LOC: CED 20:39 → C4C 12-22 01:05 → CEDOF 12-22 01:05 → CED 12-22 01:05 → C4C 12-22 04:10 → CEDOF 12-22 04:10 → CED 12-24 08:25 → CEDOF 12-24 08:25 → C4C 12-24 08:25
PROVIDERS: Emergency Medicine; Internal Medicine
PROC: B24BYZZ Ultrasonography of Heart with Aorta using Other Contrast (ICD-10-PCS; principal; 2016-12-24)
DX: F10.239 Alcohol dependence with withdrawal, unspecified (principal); E44.1 Mild protein-calorie malnutrition; Z68.1 Body mass index [BMI] 19.9 or less, adult; F32.9 Major depressive disorder, single episode, unspecified; Z85.41 Personal history of malignant neoplasm of cervix uteri; R55 Syncope and collapse; E87.6 Hypokalemia; G40.909 Epilepsy, unspecified, not intractable, without status epilepticus; Y90.8 Blood alcohol level of 240 mg/100 ml or more; F10.229 Alcohol dependence with intoxication, unspecified; K29.20 Alcoholic gastritis without bleeding
CPT/HCPCS: 36415; 70450; 80048; 80076; 80307; 83735; 84132; 84703; 85025; 93306; 96361; 96365; 96366; 96367; 99285; G0480; J2405; J3411; J3475; J3480; J7042